=== PATIENT | female | born 1955 | race Caucasian/White ===

== ENCOUNTER 2023-06-30 10:11 | Observation (INO) | payer BC, MEDICAID ==
[2023-06-21 14:57] LABS: BASOPHILS % (AUTO) 0.6 % (0-1); EOSINOPHILS # (AUTO) 0.1 X10'3 (0-0.9); EOSINOPHILS % (AUTO) 1.8 % (0-6); LYMPHOCYTES # (AUTO) 2.2 X10'3 (1.1-4.8); LYMPHOCYTES % (AUTO) 31.2 % (21-51); MEAN CORPUSCULAR VOLUME 93.8 FL (78-98); MEAN PLATELET VOLUME 6.5 FL (7.4-10.4); MONOCYTES # (AUTO) 0.5 X10'3 (0-0.9); MONOCYTES % (AUTO) 7.2 % (2-12); NEUTROPHILS # (AUTO) 4.2 X10'3 (1.8-7.7); NEUTROPHILS % (AUTO) 59.2 % (42-75); PRE OP HEMATOCRIT 39.8 % (35.0-45.0); PRE OP HEMOGLOBIN 13.2 g/dL (12.0-16.0); PRE OP PLATELET COUNT 442 X10'3 (140-440); RED BLOOD COUNT 4.24 X10'6 (4.20-5.60)
[2023-06-21 15:19] LABS: ALBUMIN 4.4 G/DL (3.4-5.0); ALBUMIN/GLOBULIN RATIO 1.2 (1.1-1.5); ALKALINE PHOSPHATASE 76 IU/L (46-116); BLOOD UREA NITROGEN 18 MG/DL (7-18); BUN/CREATININE RATIO 18.9 (10.0-20.0); CALCIUM 9.7 MG/DL (8.5-10.1); CHLORIDE 102 MMOL/L (99-107); CREATININE 0.95 MG/DL (0.40-0.90); PRE OP ALT 22 U/L (30-65); PRE OP ANION GAP 7 (8-16); PRE OP AST 30 U/L (10-37); PRE OP BILIRUB, TOTAL 0.2 MG/DL (0.0-1.0); PRE OP GLUCOSE 73 MG/DL (70-104); PRE OP POTASSIUM 4.2 MMOL/L (3.4-5.1); PRE OP SODIUM 138 MMOL/L (135-145); TOTAL PROTEIN 8.2 G/DL (6.4-8.2); eGFR 59 ML/MIN
[~2023-06-30] VITALS: Ht 154.9 cm; Wt 75.2 kg
[2023-06-30] VITALS (20 sets, daily range): BP systolic 112–147; BP diastolic 55–94; PULSE 70–95; RESP 11–46; TEMP 97–98.9; O2SAT 94–100
[~2023-06-30 10:11] MED LIST: FLUT16SP2 BOTHNARES; HYDR-3965 PO; IBUP-1985 PO; LANS15CA18 PO; LORA10TA65 PO; cefazolin 2gm/D5W 100mL 100 ML IV ONE; famotidine 20mg tablet PO ONE; tranexamic acid inj. 1,000 MG in normal saline IV soln 100ML IV ONE; vancomycin 1,500 MG in NS 300ml IV soln IV ONE
[2023-06-30] MEDS: ringers solution, lacted 1,000 ML IV SCH (11:01)
[2023-06-30] MEDS ORDERED: vancomycin 1,000mg inj ONE (12:27)
[2023-06-30] MEDS ORDERED: sevoflurane 250ml liquid IH ONE (12:33)
[2023-06-30] MEDS ORDERED: MIDAZolam 1 MG/ML 5ML VIAL ONE (12:36)
[2023-06-30] MEDS ORDERED: fentaNYL/PF 50MCG/1 ML 2ML syringe ONE (12:36)
[2023-06-30] MEDS ORDERED: propofol inj 20 ML IV ONE (12:39)
[2023-06-30] MEDS ORDERED: ROPIVAcaine 0.5% (5mg/ml) 30ml vial ONE (12:40)
[2023-06-30] MEDS ORDERED: morphine 2 MG/ML inj. syringe IV PRN (14:00)
[2023-06-30] MEDS ORDERED: ondansetron/PF 4mg/2ml inj IV PRN ×2 (14:00→15:25)
[2023-06-30] MEDS ORDERED: proCHLORperazine 10 MG/2 ml inj IV PRN (14:00)
[2023-06-30] MEDS ORDERED: ROPIVAcaine 0.2% (10 MG/5 ML) BOLUS INJECTION INTERSCALE PRN (14:00)
[2023-06-30] MEDS ORDERED: meperidine/PF 25mg/ml syringe IV PRN ×3 (14:00)
[2023-06-30] MEDS ORDERED: ringers solution, lacted 1,000 ML IV SCH (14:00)
[2023-06-30] MEDS ORDERED: morphine 4 MG/ML inj SYRINge IV PRN (14:00)
[2023-06-30] MEDS ORDERED: ROPIVAcaine 0.2%/PF PUMP/bolus 545 ML INTERSCALE SCH (14:45)
[2023-06-30] MEDS ORDERED: dexamethasone sod phosphate 4mg/ml inj. ONE (15:08)
[2023-06-30] MEDS ORDERED: ondansetron/PF 4mg/2ml inj ONE (15:08)
[2023-06-30] MEDS ORDERED: HYDROmorphone inj. 0.5 MG/0.5 ML DISP.SYRIN IV PRN (15:25)
[2023-06-30] MEDS ORDERED: diphenhydrAMINE 25mg capsule PO PRN ×2 (15:25)
[2023-06-30] MEDS ORDERED: magnesium hydroxide 30ml (MOM) UD suspension PO PRN (15:25)
[2023-06-30] MEDS ORDERED: oxyCODONE IR 5mg (immed. release) tablet PO PRN ×2 (15:25)
[2023-06-30] MEDS ORDERED: bisacodyl 10mg suppository rectal RC PRN (15:25)
[2023-06-30] MEDS ORDERED: naloxone 0.4 mg/ml inj IV PRN (15:25)
[2023-06-30] MEDS ORDERED: acetaminophen 325mg tablet PO PRN (15:25)
[2023-06-30] MEDS: ceFAZolin/D5W- 1GM premix 50 ML IV SCH (18:24)
[2023-06-30] MEDS ORDERED: tranexamic acid inj. 750 MG in normal saline 100ml IV soln 92.5 ML IV ONE (19:00)
[2023-06-30] MEDS ORDERED: loratadine 10mg tablet PO PRN (19:35)
[2023-06-30] MEDS ORDERED: vancomycin/NS 1 GM ADD-VANTAGE 250 ML IV SCH (20:00)
[2023-06-30] MEDS ORDERED: sennosides 8.6mg tablet PO SCH (21:00)
[2023-06-30] MEDS: fluticasone nasal spray 16GM bottle NS SCH (21:28)
[2023-06-30] MEDS: potassium Cl 20mEq in NS 1,000 ML IV SCH ×2 (23:25→23:41)
[2023-07-01] MEDS: acetaminophen 325mg tablet PO SCH ×3 (01:37→08:59)
[2023-07-01] MEDS: ceFAZolin/D5W- 1GM premix 50 ML IV SCH (01:39)
[2023-07-01] MEDS: HYDROcodone/acetaminophen 5mg/325mg tablet PO PRN ×2 (04:48→07:11)
[2023-07-01 06:00] VITALS: BP 135/82; PULSE 95; RESP 18; TEMP 98.9; O2SAT 96
[2023-07-01] MEDS: ringers solution, lacted 1,000 ML IV SCH (07:10)
[2023-07-01] MEDS: fluticasone nasal spray 16GM bottle NS SCH (08:00)
[2023-07-01] MEDS ORDERED: lansoprazole 15mg solutab PO SCH (08:00)
[2023-07-01] MEDS ORDERED: aspirin 325mg tablet PO SCH (08:30)
[2023-07-01] MEDS: potassium Cl 20mEq in NS 1,000 ML IV SCH (09:53)
[2023-07-01 10:00] VITALS: BP 138/92; PULSE 85; RESP 19; TEMP 97.5; O2SAT 99
[2023-07-01] MEDS ORDERED: celeCOXIB 100mg capsule PO SCH (20:00)
[2023-07-02] MEDS ORDERED: acetaminophen 325mg tablet PO PRN (15:25)
== END 2023-07-01 15:05 | disposition home or self-care (01) ==
LOC: PAS 10:11 → EDSTATUS 12:15 → ORTHO 4S 15:31 → INTOOBSV 15:31 → UNDOADMOB 15:31 → ORTHO 4S 16:24 → UNDOADMOB 07-01 05:58
PROVIDERS: ADMIT Orthopaedic Surgery; ATTEND Orthopaedic Surgery
DX: M19.012 Primary osteoarthritis, left shoulder (principal); G89.18 Other acute postprocedural pain; J44.9 Chronic obstructive pulmonary disease, unspecified; F41.9 Anxiety disorder, unspecified; M19.90 Unspecified osteoarthritis, unspecified site; Z87.891 Personal history of nicotine dependence; Z79.899 Other long term (current) drug therapy
CPT/HCPCS: 23472; 36415; 64415; 73020; 80053; 82948; 85025; 87081; 93005; 96365; 96366; 96367; 97110; 97161; 97530; C1713; C1776; G0378; J0690; J1100; J2250; J2405; J2704; J2795; J3010; J3370; J3480; J3490; J7120; A4565; A4615; A4618; A7000; C9250